=== PATIENT | female | born 1960 | race Caucasian/White ===

== ENCOUNTER 2019-02-18 14:21 | Inpatient (IN) | payer MEDICARE ==
[~2019-02-18] VITALS: Ht 152.4 cm; Wt 82.6 kg
--- OUTSIDE RECORDS SUMMARY | 2019-02-18 16:38 | XMS REPORT ---
[facility] Address Unknown Phone Unavailable Care Team Providers Care Loan Processing Supervisor Name Role Phone Unavailable Unavailable Problems This patient has no known problems. Allergies, Adverse Reactions, Alerts This patient has no known allergies or adverse reactions. Medications This patient has no known medications. Encounters Start Date/Time End Date/Time Encounter Type Admission Type Attending Clinicians Care Facility Care Department Encounter ID 2019-01-28 11:11:59 Outpatient [id number] 2018-12-06 10:13:00 2018-12-06 10:13:00 Outpatient [id number] 2018-11-27 06:45:00 2018-11-27 06:45:00 Outpatient [id number] 2018-08-03 11:51:00 2018-08-03 11:51:00 Emergency [facility] [id number]
[2019-02-18 17:05] VITALS: BP 118/83
[2019-02-18 17:08] VITALS: BP 118/83
[2019-02-18 18:26] LABS: BASOPHILS # (AUTO) 0.1 (0.0-0.1); BASOPHILS % 0.7 % (0.0-1.0); EOSINOPHILS # (AUTO) 0.1 (0.0-0.4); EOSINOPHILS % 1.7 % (0.0-6.0); HEMATOCRIT 41.8 % (34.2-44.1); HEMOGLOBIN 13.7 g/dL (12.0-16.0); LYMPHOCYTES # (AUTO) 1.6 (1.0-3.2); LYMPHOCYTES % 23.2 % (18.0-39.1); MEAN CORPUSCULAR HEMOGLOBIN 26.4 pg (28-32); MEAN CORPUSCULAR HGB CONC 32.8 g/dL (31-35); MEAN CORPUSCULAR VOLUME 80.5 fL (81-99); MONOCYTES # (AUTO) 0.8 (0.2-0.8); MONOCYTES % 11.4 % (4.4-11.3); NEUTROPHILS # (AUTO) 4.3 (2.1-6.9); NEUTROPHILS % 62.7 % (38.7-80.0); PLATELET COUNT 270 x10e3/uL (140-360); RED BLOOD COUNT 5.19 x10e6/uL (3.6-5.1); RED CELL DISTRIBUTION WIDTH 14.4 % (11.7-14.4)
[2019-02-18] MEDS ORDERED: NORCO 10-325 T1 EACH PO (18:31)
[2019-02-18] MEDS ORDERED: OMEPRAZOLE40 MG PO (18:31)
[2019-02-18] MEDS ORDERED: AMBIEN10 MG PO (18:31)
[2019-02-18] MEDS ORDERED: LIPITOR20 MG (18:31)
[2019-02-18] MEDS ORDERED: FLONASE ALLERG9.9 ML (18:31)
[2019-02-18] MEDS ORDERED: ZOLOFT50 MG PO (18:31)
[2019-02-18] MEDS ORDERED: GABAPENTIN400 MG PO (18:31)
[2019-02-18 18:40] VITALS: BP 118/83
[2019-02-18 18:44] LABS: ALANINE AMINOTRANSFERASE 19 IU/L (0-55); ALBUMIN 3.9 g/dL (3.5-5.0); ALKALINE PHOSPHATASE 94 IU/L (40-150); ANION GAP 14.8 mmol/L (8-16); BLOOD UREA NITROGEN 9 mg/dL (7-26); BUN/CREATININE RATIO 12 (6-25); CALCIUM 10.1 mg/dL (8.4-10.2); CARBON DIOXIDE 23 mmol/L (22-29); CHLORIDE 102 mmol/L (98-107); CREATININE, SERUM 0.77 mg/dL (0.57-1.11); EST GLOMERULAR FILTRATION RATE > 60 ML/MIN (60-); GLUCOSE 98 mg/dL (74-118); POTASSIUM 3.8 mmol/L (3.5-5.1); SODIUM 136 mmol/L (136-145)
[2019-02-18] MEDS: FLUTICASONE PROPIONATE NASAL SPRAY NS SCH (19:00)
--- NOTE | 2019-02-18 19:00 | NUR ---
Received patient from day nurse Nicholas, patient is alert and oriented x 3. patient is on room air and patient is wheel chair bound. patient does not have an iv, patient is pending picc line, as per day nurse radiology made aware and they are waiting for labs, ct is also pending, patient has no iv, I tried twice to get an iv and did not get it, charge nurse will be informed.
[2019-02-18 20:00] VITALS: BP 121/81
[2019-02-18] MEDS: GABAPENTIN 400 MG CAP PO SCH (20:24)
[2019-02-18] MEDS: SERTRALINE HCL 50 MG TAB PO SCH (20:24)
[2019-02-18] MEDS: HYDROCODONE/APAP 10MG-325MG TAB PO PRN (20:24)
[2019-02-18] MEDS: CEFEPIME 1GM/NS 0.9% 50 ML 50 ML IV SCH (21:00)
[2019-02-18] MEDS: VANCOMYCIN 1GM/NS 250 ML 250 ML IV SCH (21:00)
[2019-02-18] MEDS ORDERED: ZOLPIDEM TARTRATE 10 MG TAB PO PRN (21:00)
[2019-02-18 21:06] VITALS: BP 121/81
[2019-02-18] MEDS ORDERED: SODIUM CHLORIDE 0.9% 500ML 500 ML ONE (21:49)
--- NOTE | 2019-02-18 22:01 | Diagnostic Imaging Report ---
CT Lower extremity left with contrast, with reconstructions. CPT code: 71656, 63535 Indications: Left heel infection. Technique: Contiguous 2.5 mm thickness axial images were obtained through the left ankle and foot. After the intravenous administration of 100 cc of nonionic contrast. Rationale for reconstructions: Coronal and sagittal reconstructions were generated to better facilitate assessment of alignment and extent of fracture lines. Dose reduction techniques used: Automated exposure control, adjustment of the mAs and/or kVp according to patient size, standardized low-dose protocol, and/or iterative reconstruction technique. Comparison: None. Findings: The bones are diffusely demineralized. Ankle: There is bony fusion of the distal tibia and fibula. Moderate degenerative changes about the ankle. No acute fracture. Calcaneus: Intact and normal in morphology. There is a prominent plantar spur with sclerosis at the inferior aspect adjacent to the focal soft tissue thickening. No erosive changes or associated fracture. Midfoot: Intact with mild to moderate degenerative changes. Digits: Diffuse claw toe deformity of all digits. No fracture or dislocation. No focal osseous lesions. Soft tissues: Phlegmon of the plantar aspect of the calcaneus measuring 2.8 x 3.0 x 2.2 cm and is immediately adjacent to the plantar calcaneal spur. There is no associated air or radiopaque foreign body. There is edema throughout the plantar surface of the midfoot and hindfoot. IMPRESSION: 1. Plantar calcaneal spur is mildly sclerotic and is immediately adjacent to a phlegmonous collection at the plantar aspect of the foot. This may represent osteomyelitis. However, CT is a less sensitive modality to identify osteomyelitis compared to MRI and bone scan. 2. Diffuse degenerative changes of the foot and bony fusion of the distal tibia and fibula. Thank you for this referral. Signed by: Dr. Juan Elliott MD on 02/18/2019 9:58 PM
[2019-02-18] MEDS ORDERED: SODIUM CHLORIDE 0.9% 50ML 50 ML ONE (22:14)
[2019-02-18] MEDS ORDERED: IOPAMIDOL 370 MG/ML 200 ML INFUS..BTL INJ ONE (22:14)
[2019-02-19] VITALS (8 sets, daily range): BP systolic 105–149; BP diastolic 65–94
--- NOTE | 2019-02-19 01:42 | Diagnostic Imaging Report ---
EXAMINATION: CHEST XRAY LINE PLACEMENT COMPARISON: None INDICATION: ^LEFT UPPER ARM PICC LINE ^Y DISCUSSION: Frontal view of the chest obtained at 0132 hours. HEART AND MEDIASTINUM: The cardiomediastinal silhouette is unremarkable. LINES: Left PICC line terminates in the SVC. No pneumothorax. LUNGS: The lungs are well inflated and clear. No pneumonia or pulmonary edema. PLEURA: No pleural effusion or pneumothorax. BONES AND SOFT TISSUES: Multiple anchors in the left humeral head with moderate to severe degenerative changes of the glenohumeral joint. The soft tissues are normal. IMPRESSION: Left PICC line terminates in the SVC without pneumothorax. No acute cardiopulmonary process. Signed by: Dr. Juan Elliott MD on 02/19/2019 1:38 AM
[2019-02-19] MEDS: HYDROCODONE/APAP 10MG-325MG TAB PO PRN ×3 (06:23→22:51)
--- NOTE | 2019-02-19 06:55 | NUR ---
patient endorsed to next shift for continuity of care.
--- NOTE | 2019-02-19 07:05 | NUR ---
RCD PT AT BED PT IS ALERT AND ORIENTED PT RESTING ON BED NO SIGNS OF ANY DISTRESS NOTED IV PATENT BY [facility] [employer] FAMILY AT BED SIDE BED LOW AND LOCKED CALL LIGHT IN REACH
[2019-02-19] MEDS: GABAPENTIN 400 MG CAP PO SCH ×2 (09:00→21:15)
[2019-02-19] MEDS: FLUTICASONE PROPIONATE NASAL SPRAY NS SCH (09:00)
[2019-02-19] MEDS: VANCOMYCIN 1GM/NS 250 ML 250 ML IV SCH ×2 (09:00→21:45)
[2019-02-19] MEDS: CEFEPIME 1GM/NS 0.9% 50 ML 50 ML IV SCH ×2 (09:00→21:15)
[2019-02-19] MEDS: PANTOPRAZOLE SOD 40 MG TABEC PO SCH (09:00)
[2019-02-19] MEDS ORDERED: BUPROPION HCL75 MG PO (11:41)
--- NOTE | 2019-02-19 11:46 | NUR ---
Attempted to perform DPA. CM explained CM role and discharge planning. Pt stated that she just got here < 24 hrs and would like for CM to come back tomorrow for assessment.
[2019-02-19] MEDS ORDERED: NON-FORMULARY MEDICATION (Bupropion Hcl 75 MG) PO SCH (12:00)
[2019-02-19] MEDS: BUPROPION HCL 75 MG TAB PO SCH (12:30)
--- NOTE | 2019-02-19 15:59 | NUR ---
Spoke to Dr. Duffy, who states pt has osteo. Would like for us to start LTAC eval. Spoke to pt at bedside. She states she spoke with Dr. Duffy and he discussed plan with her and has been to LTAC previously. Gave choice for [facility]. Signed choice letter placed in chart. Copy to ptTatiana Contreras with [facility] was informed of referral. CM business card left with pt.
--- NOTE | 2019-02-19 17:12 | Consultation ---
DATE OF CONSULTATION: REASON FOR CONSULTATION: Osteomyelitis of the foot. HISTORY OF PRESENT ILLNESS: Thank you so much to see this patient. This patient, who is a very pleasant 58-year-old white female, history of neuropathy, history of total knee replacement on the right with history of fracture as well as mini placement. The patient comes into my office yesterday complaining of "osteomyelitis of the left foot." The patient has been seen by the wound care, Dr. Leach, who has been treating her, but she has been having chronic ulcer on her foot, so the patient was sent to me for IV antibiotic. The patient was feeling bad. In general, not doing well. Sent to emergency room because I was unsure if she have additional osteo of the something else going on with her with feeling bad and no nausea, no vomiting. This patient, who does have history of hypercholesterolemia, osteoarthritis, and neuropathy. PAST SURGICAL HISTORY: Hysterectomy, bilateral total knee replacement. She also have ileostomy, carpal tunnel syndrome surgery, bilateral left foot surgery, fractured femur on the left side, left foot toe amputation, and spinal cord surgery. SOCIAL HISTORY: There is no smoking, drug abuse, or alcohol abuse. FAMILY HISTORY: Hypertension. REVIEW OF SYSTEMS: At the present time, HEENT: There is no headache, visual changes, or hearing changes. GI: There is no nausea, no vomiting, no diarrhea. CARDIAC: There is no arrhythmia. NEURO: No seizure activity. GENERAL: Just not feeling well and feeling feverish. PHYSICAL EXAMINATION: GENERAL: She is currently alert and oriented. Does not seem to be in acute distress. VITAL SIGNS: Stable, currently afebrile. HEENT: Normocephalic. Not icteric. NECK: Supple. No JVD. No lymphadenopathy. No thyromegaly. CHEST: Clear bilateral. HEART: S1 and S2. No S3, S4, or murmur. ABDOMEN: Soft. Bowel sounds present. No tenderness. EXTREMITIES: No edema. On the left foot, there is an ulcer at the base of the heel on the left. About 2 cm subcutaneous tissue. She said there is drainage from it occasionally. IMPRESSION: 1. Osteomyelitis. 2. Neuropathy. 3. History of osteomyelitis before. 4. Wheelchair-bound. 5. History of spinal cord injury with paraplegias. PLAN: Plan is to admit. Obtain sedimentation rate and C-reactive protein. We will get a PICC line. We will start the patient on vancomycin and cefepime. The patient has been on several oral antibiotic before she came to me. Obtain sedimentation rate and C-reactive protein. We will need biweekly CBC and chemistry panel. We will need long-term antibiotic and wound care. Consider LTAC evaluation. MD CECILIA Downs/LAM /[id number]
--- NOTE | 2019-02-19 18:50 | NUR ---
PT RESTING ON BED BED SIDE REPORT GIVEN TO ONCOMING NURSE
[2019-02-19] MEDS: ATORVASTATIN 20 MG TAB PO SCH (21:15)
[2019-02-19] MEDS: SERTRALINE HCL 50 MG TAB PO SCH (21:15)
[2019-02-20] VITALS: BP 121/88
[2019-02-20 04:00] VITALS: BP 119/74
--- NOTE | 2019-02-20 07:16 | NUR ---
pt asleep resp even and unlabored at this time no distress noted, pt easily aroused, pt able to make needs known, call light in reach.
[2019-02-20 08:07] VITALS: BP 133/71
[2019-02-20] MEDS: PANTOPRAZOLE SOD 40 MG TABEC PO SCH (08:21)
[2019-02-20] MEDS: BUPROPION HCL 75 MG TAB PO SCH (08:21)
[2019-02-20] MEDS: FLUTICASONE PROPIONATE NASAL SPRAY NS SCH (08:21)
[2019-02-20] MEDS: GABAPENTIN 400 MG CAP PO SCH ×3 (08:21→20:10)
[2019-02-20] MEDS: CEFEPIME 1GM/NS 0.9% 50 ML 50 ML IV SCH ×2 (08:22→20:10)
[2019-02-20] MEDS: VANCOMYCIN 1GM/NS 250 ML 250 ML IV SCH (08:27)
[2019-02-20 08:28] VITALS: BP 133/71
[2019-02-20] MEDS: HYDROCODONE/APAP 10MG-325MG TAB PO PRN ×2 (13:06→19:27)
[2019-02-20 14:18] VITALS: BP 106/80
--- NOTE | 2019-02-20 14:35 | NUR ---
LONG-TERM ACUTE CARE DISCHARGE INFORMATION PATIENT HAS BEEN ACCEPTED TO: NAME: [facility] ADDRESS: [id number] [place] [address] ACCEPTING LIBRARY TECHNICAL ASSISTANT: Faby Eckert ACCEPTING MD: Dr. Gottlieb ROOM: 316 NURSE CALL REPORT TO: [phone] THE FOLLOWING DOCUMENTS MUST ACCOMPANY PATIENT FOR TRANSFER: copy of chart, transfer MAR COPIED CHART: community support worker MOT INFO RECEIVED FROM: Diane Calabrese PHYSICIANS ORDER/RECONCILED MED LIST: Bedside nurse to obtain [id number] DNR: n/a MOT completed and placed with pt's packet at nurse's station. JOHN Espinoza was notified of bed assignment.
--- NOTE | 2019-02-20 14:39 | NUR ---
WOUND CARE CONSULT 58 YO FEMALE HX OF RIGHT FOOT INFECTION JAYLAN 16 ON MODERATE PUP ON ALTERNATING PRESSURE SURFACE LABS : WBC- 6.9,HGB- 13.7, GLUCOSE - 98 SKIN ASSESSMENT COMPLETE PATIENT PRESENTS WITH #1 LEFT 5TH MET HEAD STAGE 2 ULCERATION CALLUSED RAISED EDGES [id number] DARK CALLUS COVERED #2 LEFT HEEL STAGE 2 ULCERATION CALLUSED RAISED EDGES 1.3CMX.5CM DARK CALLUS COVERED PATIENT REPORTS WEARING A FOOT BRACE THAT "DOESN'T QUITE FIT THE WAY IT DID WHEN SHE FIRST USED IT" RECOMMENDATIONS: NURSING TO CONTINUE TO MAINTAIN MODERATE PUP INTERVENTIONS NURSING TO CONTINUE TO ASSIST PATIENT TO SIT FOR MEALS AND MUCH TOLERATED NURSING TO APPLY DAILY VENELEX OINTMENT TO LEFT FOOT AND HEEL CONCENTRATING ON 5TH MET HEAD AND HEEL ULCERATIONS Addendum: 02/20/19 at 1453 by Mejia Fiore RN Amended: Links added.
[2019-02-20 16:15] VITALS: BP 124/81
--- NOTE | 2019-02-20 16:20 | NUR ---
report given to MIROSLAVA Carlos at [facility].
--- NOTE | 2019-02-20 17:20 | NUR ---
pt signed transfer sheet to go to [facility].
--- NOTE | 2019-02-20 19:25 | NUR ---
report given to oncoming nurse .pt stable.
[2019-02-20] MEDS: ATORVASTATIN 20 MG TAB PO SCH (20:10)
[2019-02-20] MEDS: SERTRALINE HCL 50 MG TAB PO SCH (20:10)
--- NOTE | 2019-02-20 20:28 | NUR ---
[facility] IS HERE TO TRANSFER PATIENT TO [facility]. VITAL SIGN STABLE AT THIS TIME
[2019-02-21] MEDS ORDERED: BALSAM PERU/CASTOR OIL 60 GM OINT...G. TP SCH (09:00)
== END 2019-02-20 20:30 | DRG 540 ==
LOC: MED/SURG2 16:36
PROC: 02H633Z Insertion of Infusion Device into Right Atrium, Percutaneous Approach (ICD-10-PCS; principal; 2019-02-19)
PROC: B548ZZA Ultrasonography of Superior Vena Cava, Guidance (ICD-10-PCS; 2019-02-19)
DX: M86.172 Other acute osteomyelitis, left ankle and foot (principal); G82.20 Paraplegia, unspecified; L97.429 Non-pressure chronic ulcer of left heel and midfoot with unspecified severity; Z88.2 Allergy status to sulfonamides; E78.00 Pure hypercholesterolemia, unspecified; G62.9 Polyneuropathy, unspecified; I10 Essential (primary) hypertension; Z99.3 Dependence on wheelchair; G89.29 Other chronic pain; Z96.651 Presence of right artificial knee joint; R53.81 Other malaise; F32.9 Major depressive disorder, single episode, unspecified
CPT/HCPCS: 36415; 36569; 71045; 80053; 85025; 85651; 86140; J0692; J3370; J7040; Q9967

== ENCOUNTER → 2019-06-11 | Outpatient (CLI) | payer MEDICARE ==
[~2019-06-11] MED LIST: AMBIEN10 MG PO; BUPROPION HCL75 MG PO; FLONASE ALLERG9.9 ML; GABAPENTIN400 MG PO; LIPITOR20 MG; NORCO 10-325 T1 EACH PO; OMEPRAZOLE40 MG PO; ZOLOFT50 MG PO
--- NOTE | 2019-06-11 20:51 | Diagnostic Imaging Report ---
Bone Scan, three-phase - feet and ankles Reason for exam: Left foot pain x 3 weeks; concern for osteomyelitis Radiopharmaceutical: Tc-99m MDP 26.9 mCi IV right hand Comparison: CT let foot 02/18/2019 Following intravenous administration of the radiopharmaceutical, dynamic flow and immediate blood pool images of the feet and ankles followed by 3-hour delayed spot images were obtained. Flow and blood pool images show diffuse mildly increased distribution of tracer activity to the left foot and ankle compared to the right with focal increased tracer in the distal tibial shaft and in the soft tissues of the plantar aspect of the foot adjacent to the calcaneus. The delayed images show persistent focal accumulation of tracer in the distal tibial shaft but no abnormal increased tracer in the calcaneous or adjacent talar bones. Both ankles show evidence of degenerative change/arthropathy, right worse than left. Impression: 1. Soft tissue inflammatory process in the plantar aspect of the left foot adjacent to the calcaneus but no evidence of osteomyelitis in the calcaneous or talar bones. 2. Increased osteoblastic activity in the distal aspect of the left tibial shaft is worrisome for osteomyelitis because it is present on all three phases of the study. Recent trauma could give the same appearance, however, more remote trauma should not be positive on the initial phases. Radiographic correlation may be warranted. If of clinical concern, a label white blood cell study would add specificity to the evaluation. Signed by: Dr. Odalis Khan M.D. on 06/11/2019 8:48 PM
== END ==
LOC: NM 08:10
PROVIDERS: ATTEND Internal Medicine Infectious Disease
DX: M86.8X7 Other osteomyelitis, ankle and foot (principal)
CPT/HCPCS: 78315; A9503

== ENCOUNTER → 2024-10-29 | Outpatient (REF) | payer MEDICARE | LOC: DX 10:54 | PROVIDERS: ATTEND Internal Medicine Infectious Disease | DX: Z45.2 Encounter for adjustment and management of vascular access device (principal); M86.372 Chronic multifocal osteomyelitis, left ankle and foot | CPT/HCPCS: 36569; 71045 ==